=== PATIENT | female | born 1975 | race Two or more races ===

== ENCOUNTER 2020-03-23 12:28 | Observation (INO) | payer OTHER ==
[~2020-03-23] VITALS: Ht 162.6 cm; Wt 64.9 kg
[2020-03-23] MEDS ORDERED: RINGERS SOLUTION,LACTATED 1,000 ML IV SCH (12:45)
[2020-03-23 12:48] VITALS: BP 113/58
== END 2020-03-23 14:30 | disposition home or self-care (01) ==
LOC: 4S 12:28
PROVIDERS: ADMIT Obstetrics & Gynecology; ATTEND Obstetrics & Gynecology
DX: Z34.93 Encounter for supervision of normal pregnancy, unspecified, third trimester (principal); Z3A.38 38 weeks gestation of pregnancy
CPT/HCPCS: 59025; 76811; 96360; 96361; 96366; 99219

== ENCOUNTER 2020-04-01 13:30 | Inpatient (IN) | payer OTHER ==
[~2020-04-01] VITALS: Ht 160 cm; Wt 65.3 kg
[2020-04-01] MEDS ORDERED: PREN-217 PO (14:25)
[2020-04-01] MEDS ORDERED: OXYTOCIN 30 UNITS/LACT RINGERS 500 ML IV ONE (14:30)
[2020-04-01] MEDS ORDERED: METHYLERGONOVINE MALEATE 0.2 MG/ML VIAL IM PRN (14:30)
[2020-04-01] MEDS ORDERED: RINGERS SOLUTION,LACTATED 1,000 ML IV PRN (14:30)
[2020-04-01] MEDS ORDERED: CITRIC ACID/SODIUM CITRATE 30 ML SOLUTION UDCUP PO PRN (14:30)
[2020-04-01] MEDS ORDERED: LIDOCAINE/PF 1% 30 ML VIAL INJ PRN (14:30)
[2020-04-01] MEDS ORDERED: METOCLOPRAMIDE HCL 5 MG/ML 2 ML VIAL IVP PRN (14:30)
[2020-04-01] MEDS ORDERED: OXYTOCIN 30 UNITS/LACT RINGERS 500 ML IV PRN (14:30)
[2020-04-01 15:15] LABS: COVID AG,FIA SOURCE NASOPHARYNGEAL
[2020-04-01 15:23] VITALS: BP 107/72
[2020-04-01] MEDS: MISOPROSTOL 25 MCG TABLET PO SCH ×2 (15:25→20:02)
[2020-04-01 15:38] LABS: BASOPHILS % (AUTO) 0.4 % (0.0-2.0); EOSINOPHILS % (AUTO) 0 % (1.0-6.0); HEMATOCRIT 35.3 % (36-46); LYMPHOCYTES # (AUTO) 1.4 K/uL (1.0-4.8); LYMPHOCYTES % (AUTO) 19.2 % (22.0-44.0); MEAN CORPUSCULAR HGB CONC 33.9 G/dL (31.0-37.0); MEAN CORPUSCULAR VOLUME 97 fL (80-100); MONOCYTES # (AUTO) 0.5 K/uL (0.1-1.0); MONOCYTES % (AUTO) 7.2 % (2.0-9.0); NEUTROPHILS # (AUTO) 5.4 K/uL (1.8-7.7); NEUTROPHILS % (AUTO) 73.2 % (40.0-70.0); PLATELET COUNT (AUTO)-OB 229 K/uL (150-450); RED BLOOD CELL COUNT(AUTO) 3.63 MIL/uL (4.00-5.20); RED CELL DISTRIBUTION WIDTH 14.4 % (11.5-14.5)
[2020-04-01] MEDS: RINGERS SOLUTION,LACTATED 1,000 ML IV SCH ×2 (16:46→20:28)
[2020-04-01] MEDS ORDERED: FLUCONAZOLE 150 MG TABLET PO ONE (19:30)
[2020-04-01] MEDS ORDERED: OXYGEN THERAPY IH SCH (20:00)
[2020-04-01] MEDS ORDERED: MISOPROSTOL 25 MCG TABLET PO ONE (20:15)
[2020-04-02] MEDS: FentaNYL CITRATE-PF 100 MCG/2 ML VIAL IVP PRN ×4 (00:23→05:47)
[2020-04-02] MEDS: MISOPROSTOL 50 MCG TABLET PO SCH ×2 (00:24→04:29)
[2020-04-02] MEDS ORDERED: BUTORPHANOL TARTRATE 2 MG/ML VIAL IVP PRN (00:30)
[2020-04-02] MEDS: RINGERS SOLUTION,LACTATED 1,000 ML IV SCH (03:17)
[2020-04-02] MEDS ORDERED: ROPIVACAINE HCL/PF 0.2% 100 ML ED ONE (05:41)
[2020-04-02] MEDS ORDERED: ROPIVACAINE HCL/PF 0.2% 100 ML ED PRN (06:15)
[2020-04-02] MEDS ORDERED: ONDANSETRON HCL 4 MG/2 ML VIAL IVP PRN ×2 (06:15→09:00)
[2020-04-02] MEDS ORDERED: DiphenhydrAMINE HCL 50 MG/ML VIAL IVP PRN ×2 (06:15→09:00)
[2020-04-02] MEDS ORDERED: MINERAL OIL 90 ML BOTTLE TP ONE (08:30)
[2020-04-02] MEDS ORDERED: NALOXONE HCL 0.4 MG/ML VIAL IVP PRN (09:00)
[2020-04-02] MEDS ORDERED: OxyCODONE HCL/ACETAMINOPHEN 5-325 MG TABLET PO PRN ×3 (09:00→10:00)
[2020-04-02] MEDS ORDERED: MIDAZOLAM HCL 2 MG/2 ML VIAL ONE (09:28)
[2020-04-02] MEDS ORDERED: MORPHINE SULFATE/PF 1 MG/ML 10 ML AMP ONE (09:28)
[2020-04-02] MEDS ORDERED: FentaNYL CITRATE-PF 100 MCG/2 ML VIAL ONE (09:28)
[2020-04-02] MEDS ORDERED: MINERAL OIL 30 ML UDCUP ONE (09:32)
[2020-04-02] MEDS ORDERED: LANOLIN 7 GM OINTMENT TP PRN (10:00)
[2020-04-02] MEDS ORDERED: OXYTOCIN 30 UNITS/LACT RINGERS 500 ML IV ONE (10:00)
[2020-04-02] MEDS ORDERED: LIDOCAINE/PF 1% 30 ML VIAL INJ PRN (10:00)
[2020-04-02] MEDS ORDERED: BENZOCAINE 20%/MENTHOL 56 GM SPRAY CANISTER TP PRN (10:00)
[2020-04-02] MEDS ORDERED: MAGNESIUM HYDROXIDE SUSPENSION 30 ML UDCUP PO PRN (10:00)
[2020-04-02] MEDS ORDERED: GLYCERIN/WITCH HAZEL LEAF 40 PADS JAR TP PRN (10:00)
[2020-04-02] MEDS ORDERED: KETOROLAC TROMETHAMINE 30 MG/ML VIAL IVP SCH (12:00)
[2020-04-02] MEDS ORDERED: MISOPROSTOL 100 MCG TABLET PO ONE (12:30)
[2020-04-02] MEDS ORDERED: DIPHENOXYLATE/ATROP 2.5-0.025 MG TABLET PO ONE (12:30)
[2020-04-02] MEDS ORDERED: METHYLERGONOVINE MALEATE 0.2 MG/ML VIAL IM ONE (12:30)
[2020-04-02] MEDS ORDERED: MISOPROSTOL 100 MCG TABLET ONE (12:30)
[2020-04-02] MEDS: IBUPROFEN 800 MG TABLET PO PRN ×2 (15:10→21:50)
[2020-04-02 18:03] LABS: BASOPHILS % (AUTO) 0.2 % (0.0-2.0); EOSINOPHILS % (AUTO) 0 % (1.0-6.0); HEMOGLOBIN 11.1 g/dL (12.0-16.0); LYMPHOCYTES % (AUTO) 7.6 % (22.0-44.0); MEAN CORPUSCULAR HEMOGLOBIN 33.6 pg (26.0-34.0); MEAN CORPUSCULAR HGB CONC 34.6 G/dL (31.0-37.0); MEAN CORPUSCULAR VOLUME 97 fL (80-100); MONOCYTES # (AUTO) 0.6 K/uL (0.1-1.0); MONOCYTES % (AUTO) 4.4 % (2.0-9.0); NEUTROPHILS # (AUTO) 11.2 K/uL (1.8-7.7); PLATELET COUNT (AUTO)-OB 204 K/uL (150-450); RED BLOOD CELL COUNT(AUTO) 3.29 MIL/uL (4.00-5.20); RED CELL DISTRIBUTION WIDTH 14.8 % (11.5-14.5)
[2020-04-02 18:04] LABS: NEUTROPHILS % (AUTO) 87.8 % (40.0-70.0)
[2020-04-02 18:28] LABS: PLATELET MORPHOLOGY COMMENT GIANT PLTS PRESENT
[2020-04-02] MEDS ORDERED: OXYGEN THERAPY IH SCH (20:00)
[2020-04-02] MEDS: MAGNESIUM HYDROXIDE SUSPENSION 30 ML UDCUP PO PRN (20:22)
[2020-04-03] MEDS: IBUPROFEN 800 MG TABLET PO PRN ×2 (04:03→14:00)
[2020-04-03 06:36] LABS: BASOPHILS % (AUTO) 0.3 % (0.0-2.0); EOSINOPHILS % (AUTO) 0.2 % (1.0-6.0); HEMATOCRIT 27.8 % (36-46); HEMOGLOBIN 9.6 g/dL (12.0-16.0); LYMPHOCYTES # (AUTO) 1.7 K/uL (1.0-4.8); LYMPHOCYTES % (AUTO) 21.2 % (22.0-44.0); MEAN CORPUSCULAR HEMOGLOBIN 34.2 pg (26.0-34.0); MEAN CORPUSCULAR HGB CONC 34.7 G/dL (31.0-37.0); MEAN CORPUSCULAR VOLUME 98 fL (80-100); MONOCYTES # (AUTO) 0.6 K/uL (0.1-1.0); NEUTROPHILS # (AUTO) 5.8 K/uL (1.8-7.7); NEUTROPHILS % (AUTO) 71.3 % (40.0-70.0); PLATELET COUNT (AUTO)-OB 176 K/uL (150-450); RED BLOOD CELL COUNT(AUTO) 2.82 MIL/uL (4.00-5.20); RED CELL DISTRIBUTION WIDTH 14.9 % (11.5-14.5)
[2020-04-03] MEDS: MAGNESIUM HYDROXIDE SUSPENSION 30 ML UDCUP PO PRN (09:11)
[2020-04-03] MEDS ORDERED: ACET-66 PO (13:11)
[2020-04-03] MEDS ORDERED: IBUP-2070 PO (13:12)
[2020-04-03] MEDS ORDERED: DOCU-275 PO (13:13)
[2020-04-03] MEDS ORDERED: MOM30 PO (13:14)
== END 2020-04-03 15:00 | disposition home or self-care (01) | DRG 768 ==
LOC: 4S 13:30 → OBSVTOIN 13:30
PROVIDERS: ADMIT Obstetrics & Gynecology; ATTEND Obstetrics & Gynecology
PROC: 10E0XZZ Delivery of Products of Conception, External Approach (ICD-10-PCS; principal; 2020-04-02)
PROC: 0DQR0ZZ Repair Anal Sphincter, Open Approach (ICD-10-PCS; 2020-04-02)
PROC: 3E0R3BZ Introduction of Anesthetic Agent into Spinal Canal, Percutaneous Approach (ICD-10-PCS; 2020-04-02)
PROC: 00HU33Z Insertion of Infusion Device into Spinal Canal, Percutaneous Approach (ICD-10-PCS; 2020-04-02)
DX: O77.0 Labor and delivery complicated by meconium in amniotic fluid (principal); Z37.0 Single live birth; O70.20 Third degree perineal laceration during delivery, unspecified; Z3A.39 39 weeks gestation of pregnancy; Z20.828 Contact with and (suspected) exposure to other viral communicable diseases
CPT/HCPCS: 86850; 86900; 86901; 87426; J0595; J2210; J2250; J2590; J2765; J2795; J3010; J7120